=== PATIENT | male | born 1970 | race Caucasian/White ===

== ENCOUNTER 2017-03-08 14:20 | Emergency (ER) | payer MEDICARE, OTHER | END 2017-03-08 15:46 | disposition home or self-care (01) | LOC: ER 14:20 | DX: J18.9 Pneumonia, unspecified organism (principal); J45.909 Unspecified asthma, uncomplicated; R05 Cough; R06.2 Wheezing; E66.01 Morbid (severe) obesity due to excess calories; F17.210 Nicotine dependence, cigarettes, uncomplicated; Z79.899 Other long term (current) drug therapy; Z79.1 Long term (current) use of non-steroidal anti-inflammatories (NSAID) | CPT/HCPCS: 71020; 96372; 99283; 99283-25; J2930 ==